=== PATIENT | male | born 1995 | race Caucasian/White ===

== ENCOUNTER 2018-01-10 23:30 | Emergency (ER) | payer OTHER ==
[2018-01-11] MEDS ORDERED: Al Hydrox/Mg Hydrox/Simet LIQ* 30 ML UDC PO ONE (02:52)
[2018-01-11] MEDS ORDERED: Lidocaine 2% VISCOUS* 15 ML UDC PO ONE (02:53)
[2018-01-11] MEDS ORDERED: Omeprazole CAP* 20 MG PO ONE (02:53)
[2018-01-11] MEDS ORDERED: Sucralfate TAB* 1 GM PO ONE (02:53)
[2018-01-11 04:50] VITALS: BP 107/65
--- NOTE | 2018-01-11 08:21 | RAD ---
INDICATION: Chest pain COMPARISON: None TECHNIQUE: An AP portable view obtained at 0312 hours is submitted. FINDINGS: Bones/Soft Tissues: There are no acute bony findings. Cardiomediastinal: The cardiomediastinal silhouette is normal. Lungs: There are no infiltrates. There is no pneumothorax. Pleura: There are no pleural effusions. Other: None IMPRESSION: NEGATIVE EXAMINATION.
--- NOTE | 2018-01-12 15:49 | ED ---
Steve France Angela, scribed for Grey Hernandez MD on 01/11/18 at 0255 . HPI Chest Pain - HPI Summary HPI Summary: This pt is a 22 y/o male presenting to [facility] c/o left sided chest pain for more than 24 hours. Pt reports that he has hx of GERD and this pain feels like GERD, but it doesn't typically last more than 24 hours. Pt describes chest pain as non -radiating pressure on the top left of his chest. His GERD is usually alleviated with Tums. Pt took 3 Tums last night and advil this morning with no relief. Denie LE or UE weakness, numbness, tingling, back pain. Pt had hard cider yesterday and spicy food (which is normal for him). - History of Current Complaint Chief Complaint: EDAbdPain Hx Obtained From: Patient Onset/Duration: Started Hours Ago, Still Present Timing: Constant, Lasting Hours Current Severity: Mild Pain Intensity: 3 Pain Scale Used: 0-10 Numeric Chest Pain Location: Left Anterior Chest Pain Radiates: No Character: Pressure/Squeezing - Pressure Aggravating Factor(s): Nothing Alleviating Factor(s): Nothing Associated Signs and Symptoms: Positive: Chest Pain. Negative: Numbness, Tingling, Weakness, Fever, Back Pain - Allergy/Home Medications Allergies/Adverse Reactions: Allergies Allergy/AdvReac Type Severity Reaction Status Date / Time No Known Allergies Allergy Verified 01/10/18 23:37 PMH/Surg Hx/FS Hx/Imm Hx Endocrine/Hematology History: Denies: Hx Diabetes Cardiovascular History: Denies: Hx Hypertension - Immunization History Date of Influenza Vaccine: did not receive Infectious Disease History: No Infectious Disease History: Denies: Traveled Outside the [place] in Last 30 Days - Family History Known Family History: Negative: Hypertension, Diabetes - Social History Alcohol Use: Occasionally Substance Use Type: Reports: None Smoking Status (MU): Never Smoked Tobacco Review of Systems Negative: Fever Positive: Chest Pain Gastrointestinal: Negative Genitourinary: Negative Musculoskeletal: Negative Negative: Weakness, Paresthesia, Numbness All Other Systems Reviewed And Are Negative: Yes Physical Exam - Summary Physical Exam Summary: General: No acute distress Appearance: Well-appearing, Well-nourished Skin: Warm Eyes: Normal ENT: Normal Neck: Supple, nontender Respiratory: Clear to auscultation Cardiovascular: Normal S1, S2. No murmurs. Normal distal pulses in tibial and radial bilaterally. Abdomen: Soft, nontender Musculoskeletal: Normal, Strength/ROM Intact Neurological: Normal, A&Ox3 Psychiatric: Normal Triage Information Reviewed: Yes Vital Signs On Initial Exam: Initial Vitals Temp Pulse Resp BP Pulse Ox 97.4 F 70 16 115/85 100 01/10/18 23:34 01/10/18 23:34 01/10/18 23:34 01/10/18 23:34 01/10/18 23:34 Vital Signs Reviewed: Yes Diagnostics - Vital Signs Vital Signs Temp Pulse Resp BP Pulse Ox 01/11/18 00:30 63 102/63 100 01/11/18 00:10 32 93 01/11/18 00:09 111/66 01/10/18 23:34 97.4 F 70 16 115/85 100 - Laboratory Lab Statement: Any lab studies that have been ordered have been reviewed, and results considered in the medical decision making process. - Radiology Chest XR Xray Interpretation: No Acute Changes - no acute intrathoracic disease. Radiology Interpretation Completed By: ED Physician - EKG 00:13 Cardiac Rate: NL EKG Rhythm: Sinus Rhythm - at 66 bpm EKG Interpretation: No acute ST changes. Chest Pain Course/Dx - Course Assessment/Plan: patient has no cardiac risk factors and no changes on EKG or chest XR. Symptoms improved with medications, I instructed the pt to return to the ED for any worsening or concerning symptoms. Agrees to and understands dc instructions. - Diagnoses Provider Diagnoses: Chest pain Discharge - Sign-Out/Discharge Documenting (check all that apply): Discharge - discharge to home - Discharge Plan Condition: Improved Disposition: HOME Patient Education Materials: Chest Pain (ED) Referrals: [facility] - Rell LEE [Primary Care Provider] - Additional Instructions: PLEASE RETURN IMMEDIATELY TO THE ER IF YOU HAVE ANY WORSENING OR CONCERNING SYMPTOMS PLEASE MAKE AN APPOINTMENT TO BE SEEN BY YOUR PRIMARY CARE DOCTOR WITHIN 1 WEEK - Billing Disposition and Condition Condition: IMPROVED Disposition: HOME The documentation as recorded by the Steve tena Angela accurately reflects the service I personally performed and the decisions made by me, Grey Hernandez MD.
== END 2018-01-11 04:25 | disposition home or self-care (01) ==
LOC: ED 23:30
DX: R07.9 Chest pain, unspecified (principal)
CPT/HCPCS: 71045; 93005; 99283; A9270-GY